=== PATIENT | male | born 1985 | race Caucasian/White ===

== ENCOUNTER 2020-08-26 18:02 | Emergency (ER) | payer OTHER ==
[2020-08-26] MEDS ORDERED: BACLOFEN 10MG T10 MG PO (20:44)
[2020-08-26] MEDS ORDERED: NAPROXEN500 MG PO (20:44)
== END 2020-08-26 21:07 | disposition home or self-care (01) ==
LOC: FER 18:02
DX: S00.83XA Contusion of other part of head, initial encounter (principal); S20.212A Contusion of left front wall of thorax, initial encounter; S60.511A Abrasion of right hand, initial encounter; V49.50XA Passenger injured in collision with unspecified motor vehicles in traffic accident, initial encounter; Y92.410 Unspecified street and highway as the place of occurrence of the external cause; Z23 Encounter for immunization
CPT/HCPCS: 71101; 90471; 90715; J1885